=== PATIENT | female | born 1995 | race Two or more races ===

== ENCOUNTER 2019-04-27 06:39 | Inpatient (IN) | payer OTHER ==
[~2019-04-27] VITALS: Ht 149.9 cm; Wt 71.7 kg
[2019-04-27] MEDS ORDERED: OBSTETRIX ONE1 EACH PO (14:03)
== END 2019-04-29 12:35 | disposition home or self-care (01) | DRG 807 ==
LOC: LDR 06:39 → OB/GYN 15:47
PROVIDERS: ADMIT Obstetrics & Gynecology
PROC: 10E0XZZ Delivery of Products of Conception, External Approach (ICD-10-PCS; principal; 2019-04-27)
PROC: 4A1HXCZ Monitoring of Products of Conception, Cardiac Rate, External Approach (ICD-10-PCS; 2019-04-27)
DX: O80 Encounter for full-term uncomplicated delivery (principal); Z37.0 Single live birth; Z3A.40 40 weeks gestation of pregnancy

== ENCOUNTER → 2021-03-23 | Emergency (ER) | payer OTHER ==
[~2021-03-23] VITALS: Ht 152.4 cm; Wt 59.0 kg
[~2021-03-23] MED LIST: OBSTETRIX ONE1 EACH PO
== END | disposition left against medical advice (07) ==
LOC: ER 16:02 → EMR PED 16:02 → ER 17:06
DX: O20.8 Other hemorrhage in early pregnancy (principal); Z3A.01 Less than 8 weeks gestation of pregnancy